=== PATIENT | female | born 1965 | race Caucasian/White ===

== ENCOUNTER 2016-12-01 16:56 | Emergency (ER) | payer OTHER, BC ==
[~2016-12-01] VITALS: Ht 175.3 cm; Wt 80.6 kg
[~2016-12-01 16:56] MED LIST: AUGMENTIN875 MG PO; CIPRO500 MG PO; FISH OIL300 MG PO; FLAGYL500 MG PO; LORTAB 5-325 M1 EACH PO; NAPROSYN500 MG PO; PERCOCET 5/31 TABLET PO; POTASSIUM GLUCO2 MEQ PO; VITAMIN D35000 UNIT PO; ZOFRAN ODT4 MG PO
[2016-12-01] MEDS ORDERED: BACLOFEN10 MG PO (20:04)
[2016-12-01] MEDS ORDERED: FIORICET,ESG1 TABLET PO (20:04)
[2016-12-01 20:28] VITALS: BP 144/88
== END 2016-12-01 20:29 | disposition home or self-care (01) ==
LOC: EME 16:56
DX: S06.0X0A Concussion without loss of consciousness, initial encounter (principal); S16.1XXA Strain of muscle, fascia and tendon at neck level, initial encounter; V49.40XA Driver injured in collision with unspecified motor vehicles in traffic accident, initial encounter; F17.200 Nicotine dependence, unspecified, uncomplicated
CPT/HCPCS: 70450; 72125; 99281; 99284

== ENCOUNTER → 2018-04-28 | Outpatient (CLI) | payer OTHER ==
[~2018-04-28] VITALS: Ht 171.4 cm; Wt 81.2 kg
[~2018-04-28] MED LIST changes: +BACLOFEN10 MG PO; +FIORICET,ESG1 TABLET PO; +LIPITOR20 MG PO; +MOBIC15 MG PO; +SYNTHROID75 MCG PO; +ULTRAM50 MG PO; +VENTOLIN HFA18 GM IH; +VITAMIN D32000 UNI1 PO; -VITAMIN D35000 UNIT PO
== END | disposition home or self-care (01) ==
LOC: AMB 12:43
PROC: 0DBN8ZX Excision of Sigmoid Colon, Via Natural or Artificial Opening Endoscopic, Diagnostic (ICD-10-PCS; principal; 2018-04-28)
PROC: 0DBK8ZX Excision of Ascending Colon, Via Natural or Artificial Opening Endoscopic, Diagnostic (ICD-10-PCS; principal; 2018-04-28)
DX: Z12.11 Encounter for screening for malignant neoplasm of colon (principal); K63.5 Polyp of colon; K57.30 Diverticulosis of large intestine without perforation or abscess without bleeding; F17.200 Nicotine dependence, unspecified, uncomplicated; E03.9 Hypothyroidism, unspecified; M19.90 Unspecified osteoarthritis, unspecified site
CPT/HCPCS: 88305

== ENCOUNTER 2018-05-11 06:30 | Day surgery (SDC) | payer OTHER ==
[~2018-05-11] VITALS: Ht 171.4 cm; Wt 81.2 kg
[2018-05-11 07:33] VITALS: BP 116/74
[2018-05-11 10:34] VITALS: BP 131/71
[2018-05-11 11:21] VITALS: BP 110/58
== END 2018-05-11 11:22 | disposition home or self-care (01) ==
LOC: SDC 06:30
PROVIDERS: Obstetrics & Gynecology Gynecology
PROC: 0UBC8ZX Excision of Cervix, Via Natural or Artificial Opening Endoscopic, Diagnostic (ICD-10-PCS; principal; 2018-05-11)
PROC: 0UDB7ZX Extraction of Endometrium, Via Natural or Artificial Opening, Diagnostic (ICD-10-PCS; principal; 2018-05-11)
DX: N84.1 Polyp of cervix uteri (principal); N84.0 Polyp of corpus uteri; N95.0 Postmenopausal bleeding; N93.0 Postcoital and contact bleeding; R87.811 Vaginal high risk human papillomavirus (HPV) DNA test positive; E03.9 Hypothyroidism, unspecified; E78.5 Hyperlipidemia, unspecified; F17.200 Nicotine dependence, unspecified, uncomplicated
CPT/HCPCS: 82948; 88305; 93005; J0330; J0690; J1100; J1170; J1885; J2250; J2405; J3010